=== PATIENT | male | born 1975 | race Hispanic/Latino ===

== ENCOUNTER 2018-08-04 02:25 | Emergency (ER) | payer OTHER ==
[2018-08-04] MEDS ORDERED: Lidocaine 1% (PF) 30 ML VIAL ONE (02:38)
[2018-08-04] MEDS ORDERED: Haloperidol Lactate 5 MG/ML VIAL ONE (02:47)
[2018-08-04] MEDS ORDERED: Adacel (T-DAP) 0.5 ML SYRINGE ONE (02:50)
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
== END 2018-08-04 07:18 | disposition home or self-care (01) ==
LOC: ERS 02:25
DX: S01.81XA Laceration without foreign body of other part of head, initial encounter (principal); Y04.0XXA Assault by unarmed brawl or fight, initial encounter
CPT/HCPCS: 12013; 70450; 72125; 90471; 90715; J1630; J2001

== ENCOUNTER 2020-06-23 01:23 | Emergency (ER) | payer OTHER, SELFPAY ==
[2020-06-23 01:53] LABS: #Basophils 0.1 thou/uL (0.0-0.2); #Eosinphils 0.4 thou/uL (0.0-0.7); #Lymphocytes 4.6 thou/uL (1.20-3.40); #Monocytes 1.3 thou/uL (0.11-0.59); #Neutrophils 6.9 thou/uL (1.40-6.50); %Basophils 0.8 % (0.0-1.0); %Eosinophils 2.8 % (0.0-10.0); %Lymphocytes 34.5 % (21.0-51.0); %Monocytes 9.8 % (0.0-10.0); %Neutrophils 52.1 % (42.0-75.0); Hemoglobin 15.8 g/dL (14.0-18.0); Mean Corpuscular HGB CONC 35.2 g/dL (32.0-36.0); Mean Corpuscular Hemoglobin 34.6 pg (27.0-31.0); Mean Corpuscular Volume 98.1 fL (78.0-98.0); Platelet Count 300 thou/uL (130-400); Red Blood Cell (RBC) Count 4.56 mill/uL (4.70-6.10); White Blood Cell (WBC) Count 13.3 thou/uL (4.8-10.8)
[2020-06-23 02:13] LABS: ALT (SGPT) 52 U/L (8-55); AST (SGOT) 56 U/L (5-34); Albumin 3.8 g/dL (3.5-5.0); Alcohol 289 mg/dL (Less than 10); Alkaline Phosphatase 86 U/L (40-110); Anion Gap 17 mmol/L (10-20); BUN (Urea Nitrogen) 7 mg/dL (8.9-20.6); Bilirubin, Total 0.5 mg/dL (0.2-1.2); CK (CPK) 574 U/L (30-200); Calc. Creatinine Clearance 0 mL/min (70-130); Calcium 8.3 mg/dL (7.8-10.44); Carbon Dioxide 23 mmol/L (22-29); Chloride 101 mmol/L (98-107); Glucose 109 mg/dL (70-105); Lipase 96 U/L (8-78); Potassium 3.7 mmol/L (3.5-5.1); Protein, Total 6.8 g/dL (6.0-8.3); Sodium 137 mmol/L (136-145)
[2020-06-23] MEDS ORDERED: Boostrix 0.5 ML (Tdap) VIAL ONE (02:26)
[2020-06-23] MEDS ORDERED: Proparacaine 0.5% Opth 15 ML BOT ONE (02:32)
[2020-06-23] MEDS ORDERED: Ketamine 50 MG/ML (10ML VIAL) ONE (02:44)
[2020-06-23] MEDS ORDERED: Naloxone HCl 2 mg/2 ml Syringe ONE (02:52)
[2020-06-23] MEDS ORDERED: Bacitracin 1 PK ONE (03:36)
[2020-06-23] MEDS ORDERED: Iopamidol-370 76% 500 ML 1 ML ONE (09:41)
== END 2020-06-23 04:02 | disposition short-term general hospital (02) ==
LOC: ERS 01:23
DX: S06.9X9A Unspecified intracranial injury with loss of consciousness of unspecified duration, initial encounter (principal); S02.31XA Fracture of orbital floor, right side, initial encounter for closed fracture; S01.01XA Laceration without foreign body of scalp, initial encounter; T79.A9XA Traumatic compartment syndrome of other sites, initial encounter; F10.129 Alcohol abuse with intoxication, unspecified; X99.0XXA Assault by sharp glass, initial encounter; Z23 Encounter for immunization
CPT/HCPCS: 12002; 36415; 67715; 70450; 71260; 72125; 74177; 80053; 80307; 82550; 83690; 85025; 90471; 90715; 96374; 99152; J0690; J2310; Q9967

== ENCOUNTER 2020-11-23 02:04 | Emergency (ER) | payer OTHER ==
[2020-11-23 03:00] LABS: Glucose POC Confirmation 96 mg/dl (70-105)
== END 2020-11-23 04:45 ==
LOC: ERS 02:04
DX: S01.01XA Laceration without foreign body of scalp, initial encounter (principal); F10.129 Alcohol abuse with intoxication, unspecified; Y90.8 Blood alcohol level of 240 mg/100 ml or more; X58.XXXA Exposure to other specified factors, initial encounter
CPT/HCPCS: 12001; 36415; 36416; 70450; 72125; 80307; 82947; 93005